=== PATIENT | female | born 1945 | race Caucasian/White ===

== ENCOUNTER 2022-05-22 12:36 | Outpatient (REF) | payer MEDICARE, BC, SELFPAY ==
--- NOTE | 2022-05-22 10:00 | SKI_PTH ---
PATIENT: Khushi Pillai LOC: [facility] U#:[id number] AGE/SX: 76/F ROOM: RE05/22/[address]: Bernardino Gonzalez MD : 1945 BED: DIS: 05/22/2022 SPEC #: [id number] RECD: 05/22/22 19:02 STATUS: NIKOLAS REQ #: [id number] DAYNA: 05/22/22 10:[address]: Bernardino Gonzalez DEPT: Surgical Specimen RECD BY: Terrie Tafoya ENTERED: 05/22/22 19:02 SP TYPE: FIGUEROA WEBB DR: NO LOVE, NANDINI Tissues: 1 - SKIN BIOPSY(SHAVE/PUNCH) Procedures: SKIN LEVEL 4 Comments: [id number]
--- OUTSIDE RECORDS SUMMARY | 2022-05-22 12:43 | XMS_ITS | Continuity of Care Document ---
:[address] 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 Allergies, Adverse Reactions, Alerts No Known Medication Allergies Substance Reaction Severity Status TREE AND SHRUB POLLEN Unknown Active Assessment and Plan Future Appointments Immunizations Given and Recorded Vaccine Date Status Refusal Reason SARS-CoV-2 (COVID-19) mRNA-1273 vaccine 03/05/21 Recorded SARS-CoV-2 (COVID-19) mRNA-1273 vaccine 07/24/20 Recorded SARS-CoV-2 (COVID-19) mRNA-1273 vaccine 06/27/20 Recorded influenza, unspecified formulation1 01/24/21 Recorded influenza, unspecified formulation2 02/12/20 Recorded influenza, unspecified formulation3 02/15/19 Recorded influenza, unspecified formulation 03/30/18 Recorded influenza, unspecified formulation4 03/11/16 Recorded influenza virus vaccine, inactivated 02/06/17 Recorded influenza virus vaccine, inactivated 02/15/15 Recorded influenza virus vaccine, inactivated 02/14/14 Recorded influenza virus vaccine, inactivated 02/08/13 Recorded influenza virus vaccine, inactivated 01/16/12 Recorded influenza virus vaccine, inactivated 01/11/11 Recorded influenza virus vaccine, inactivated 02/16/10 Recorded pneumococcal 23-polyvalent vaccine 03/11/16 Recorded pneumococcal 13-valent conjugate vaccine 02/15/15 Recorde d tetanus/diphth/pertuss (Tdap) adult/adol 02/08/13 Recorde d zoster vaccine live 01/31/12 Recorded 1Result Comment: Gis Engineer: Other [id number] Comment: Gis Engineer: Other [id number] Comment: Gis Engineer: Other [id number] Comment: Gis Engineer: Other supervisor stripping Medications cetirizine 10 mg oral tablet 10 mg = 1 tab, Oral, Daily, # 30 tab, 3 Refill(s), Pharmacy: [facility] #[id number] Start Date: 09/27/21 Status: Orderedestradiol 0.1 mg/g vaginal cream g, VAG, 0 Refill(s) Start Date: 09/27/21 Status: Orderedtriamcinolone 0.1% topical cream See Instructions, PRN other (see comment), triamcinolone acetonide 0.1 % topical cream; apply to affected area twice a day as needed Start Date: 09/26/21 Status: Ordered Problem List Condition Confirmation Course Effective Dates Status Health I nformant Status Arthropathy Confirmed Active Atrophic vaginitis Confirmed Active Elevated Confirmed 04/07/20 Active blood-pressure reading without diagnosis of hypertension Family history of Confirmed Active diabetes mellitus 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 Hyperglycemia Confirmed 05/03/21 Active Hyperlipidemia Confirmed Active Obesity Confirmed Active Perimenopausal Confirmed Active disorder Tobacco dependence in Confirmed 04/05/18 Active remission Procedures Procedure Date Related Diagnosis Body Site Status Colonoscopy 05/06/21 Completed Cataract surgery 09/04/15 Completed Hip replacement1 04/27/11 Completed Colonoscopy2 01/20/11 Completed Open reduction and internal fixation 04/26/09 Completed of fracture3 Removal4 08/06/04 Completed Biopsy5 11/25/96 Completed 1pr reported [id number] hyperplastic polyps, 10 yr call [id number] Right calcaneal fracture.05/02/21 pt states this was [id number] of hardware 05/02/21 pt reports one screw remaining in left [id number]/No Dysplasia Identified Results Laboratory List Name Date Comprehensive Metabolic Panel (CMP) 04/03/22 Hemoglobin A1c 04/03/22 Lipid Panel 04/03/22 Most recent to oldest [Reference Range]: 1 BUN [7-18 mg/dL] 18 mg/dL (04/03/22 9:43 AM) Cholesterol Total [50-200 mg/dL] 251 mg/dL *HI* (04/03/22 9:43 AM) LDL [0-130 mg/dL] 145 mg/dL *HI* (04/03/22:43 AM) Glucose Level [74-106 mg/dL] 101 mg/dL (04/03/22:43 AM) Potassium Level [3.5-5.1 mmol/L] 4.1 mmol/L (04/03/22:43 AM) HDL [40-60 mg/dL] 80 mg/dL *HI* (04/03/22:43 AM) AST [15-37 unit/L] 26 unit/L (04/03/22:43 AM) ALT [14-59 unit/L] 28 unit/L (04/03/22:43 AM) Sodium Level [136-145 mmol/L] 140 mmol/L (04/03/22:43 AM) Triglycerides [0-150 mg/dL] 129 mg/dL (04/03/22:43 AM) Calcium Level [8.5-10.1 mg/dL] 9.1 mg/dL (04/03/22:43 AM) Albumin Level [3.4-5.0 g/dL] 3.9 g/dL (04/03/22:43 AM) Protein Total [6.4-8.2 g/dL] 7.1 g/dL (04/03/22:43 AM) Bilirubin Total [0.2-1.0 mg/dL] 0.9 mg/dL (04/03/22:43 AM) Alk Phos [46-146 unit/L] 81 unit/L (04/03/22:43 AM) CO2 [21-32 mmol/L] 24 mmol/L (04/03/22:43 AM) eGFR Non-AA [>=60] 50 *LOW* (04/03/22:43 AM) eGFR AA [>=60] 50 *LOW* (04/03/22:43 AM) Hemoglobin A1c [4.0-6.0 %] 4.9 % (04/03/22 9:43 AM) Chloride Level [98-107 mmol/L] 103 mmol/L (04/03/22 9:43 AM) Creatinine Level [0.55-1.02 mg/dL] 1.15 mg/dL *HI* (04/03/22 9:43 AM) Social History Social History Type Response Tobacco Never tobacco user Tobacco U se:. Sex Female Patient Care team information PersonnelName: Emili Rincon NP Address: Address: [place] [address]- [place]
--- OUTSIDE RECORDS SUMMARY | 2022-05-22 12:43 | XMS_ITS | Continuity of Care Document ---
:[address] [facility] Address [address] [place] [address] Care Team Providers Name Role Phone Emili Rincon Primary Care Physician [facility] 02/28/22 - 02/28/22 [facility] [address] [place] [address] Encounter Diagnosis Screening mammogram, encounter for (Discharge Diagnosis) - 02/28/22 Discharge Disposition: Home or Self Care Attending Physician: Emili Rincon NP Admitting Physician: Emili Rincon NP Referring Physician: Emili Rincon NP Allergies, Adverse Reactions, Alerts No Known Medication [...] zoster vaccine live 01/31/12 Recorded 1Result Comment: Bartacker: Other [id number] Comment: Bartacker: Other [id number] Comment: Bartacker: Other [id number] Comment: Bartacker: Other story writer Medications cetirizine 10 mg oral tablet 10 mg = 1 tab, Oral, Daily, # 30 tab, 3 Refill(s), Pharmacy: [id number] [facility] #[id number] Start Date: 09/27/21 Status: Orderedestradiol 0.1 mg/g [...] 08/06/04 Completed Biopsy5 11/25/96 Completed 1pr reported [id number] hyperplastic polyps, 10 yr call [id number] Right calcaneal fracture.05/02/21 pt states this was [id number] of hardware 05/02/21 pt reports one screw remaining in left [id number]/No Dysplasia Identified Social History Social History Type Response Tobacco Never tobacco user Tobacco U se:. Sex Female Patient Care team information PersonnelName: Emili Rincon NP Address: Address: [place], [place] [address]
== END 2022-05-22 12:37 | disposition home or self-care (01) ==
LOC: LBN 12:36
PROVIDERS: PCP Registered Nurse; Visit Provider Otolaryngology
DX: L98.8 Other specified disorders of the skin and subcutaneous tissue (principal); R22.1 Localized swelling, mass and lump, neck
CPT/HCPCS: 88305